=== PATIENT | female | born 1965 | race Caucasian/White ===

== ENCOUNTER 2017-07-13 19:47 | Emergency (ER) | payer OTHER ==
--- NOTE | 2017-07-13 19:53 | EDPHY ---
General Narrative: CHIEF COMPLAINT: Anxiety HISTORY OF PRESENT ILLNESS: Patient presents by EMS and is seen within 5 minutes arrival. She was eating dinner around 7:00 p.m. when she had a sudden onset of palpitations, heart racing, sweating, nausea, spasm of the hands and feet, tingling of the hands and feet, tingling around the mouth. No chest pain but she could feel her heart beating. She has had some recent cough and congestion over the past week , and her partner in friends feel as though she may have had the flu. She has no headache. No neck pain or stiffness. No trauma or injury. She does not use any illicit substance. Does have history of anxiety but no symptoms such as this. No other associated complaints or modifying factors. She arrives by ambulance, and they administered 1 mg of Versed with minimal improvement. REVIEW OF SYSTEMS: Ten systems reviewed and are negative unless otherwise noted in the HPI PCP: Alex physician SPECIALISTS: None PAST MEDICAL HISTORY: Anxiety SOCIAL HISTORY: Nonsmoker. FAMILY HISTORY: Noncontributory EXAMINATION General Appearance: Alert, no distress, anxious and tremulous Head: normocephalic, atraumatic Eyes: Pupils equal and round, no conjunctival pallor or injection ENT, Mouth: Mucous membranes moist. Airway is widely patent Neck: Normal inspection, supple, non-tender Respiratory: Lungs are clear to auscultation. No stridor. No wheezing, rhonchi or crackles Cardiovascular: Tachycardic rate. Regular rhythm. Pulses symmetric in the radial 2+ Back: non-tender, no bony abnormalities Neurological: Carpopedal spasm noted. GCS 15. A&O, nonfocal, strength symmetric Skin: Warm and dry, no rash. No petechiae or purpura Extremities: Nontender, no pedal edema. Tremulous. Psychiatric: Anxious. No SI or HI DIFFERENTIAL DIAGNOSES: Including but not limited to anxiety reaction, thyroid storm, hyperthyroid, influenza, pneumonia, bronchitis MDM: 8:05 p.m. Suspected anxiety reaction. She is tachycardic but in no acute distress. She was exhibiting carpopedal spasm. No chest pain. No hypoxia. IV Ativan, IV fluid ordered. Chest x-ray ordered. EKG ordered. 8:40 p.m. Patient re-evaluated. She is feeling much better after the IV Ativan. I have ordered a 2nd dose. Chest x-ray has been read as negative. CBC and chemistry unremarkable. Troponin TSH pending. She is starting to feel significantly better. 9:15 p.m. Patient re-evaluated. She is feeling much better. No longer having any spasm. She is feeling nearly 100% better. I discussed with attending physician. 9:51 p.m. Patient re-evaluated. She continues to feel well. Suspect this is likely anxiety reaction. EKG unremarkable. Chest x-ray unremarkable. Laboratory studies within normal limits. Vital signs continued to improve. We discussed discharge home with short course of p.r.n. Ativan. We discussed contacting her primary care physician in the morning for outpatient care. We discussed ED precautions for return of symptoms or any chest pain of any kind. She is comfortable with plan and discharged home in stable condition. SUPERVISION: Patient was independently examined, but I discussed the case with my primary supervising physician Dr. Forrest. - Diagnostics Imaging Results: Imaging Impressions Chest X-Ray 07/13/17 20:08 Impression: No acute thoracic abnormality. - Objective Vital Signs: Initial Vital Signs Temperature (C) 98.8 F 07/13/17 20:08 Heart Rate 121 H 07/13/17 20:08 Respiratory Rate 28 H 07/13/17 20:08 Blood Pressure 107/66 07/13/17 20:08 O2 Sat (%) 96 07/13/17 20:08 O2 Delivery Mode Room Air Allergies/Adverse Reactions: No Known Allergies Allergy (Unverified 07/13/17 21:48) Home Medications: Medication Instructions Recorded LORazepam [Ativan] 1 mg PO Q8 PRN #6 tablet 07/13/17 NK [No Known Home Meds] 07/13/17 Laboratory Results: Laboratory Results 07/13/17 19:59 07/13/17 19:59 07/13/17 07/13/17 07/13/17 20:35 19:59 19:59 WBC 5.99 10^3/uL 10^3/uL (3.80-9.50) RBC 5.03 10^6/uL 10^6/uL (4.18-5.33) Hgb 15.4 g/dL g/dL (12.6-16.3) Hct 45.0 % % (38.0-47.0) MCV 89.5 fL fL (81.5-99.8) MCH 30.6 pg pg (27.9-34.1) MCHC 34.2 g/dL g/dL (32.4-36.7) RDW 13.1 % % (11.5-15.2) Plt Count 273 10^3/uL 10^3/uL (150-400) MPV 10.3 fL fL (8.7-11.7) Neut % (Auto) 34.3 % L % (39.3-74.2) Lymph % (Auto) 51.9 % H % (15.0-45.0) [place] % (Auto) 10.2 % % (4.5-13.0) Eos % (Auto) 2.5 % % (0.6-7.6) Baso % (Auto) 0.8 % % (0.3-1.7) Nucleat RBC Rel Count 0.0 % % (0.0-0.2) Absolute Neuts (auto) 2.05 10^3/uL 10^3/uL (1.70-6.50) Absolute Lymphs (auto) 3.11 10^3/uL H 10^3/uL (1.00-3.00) Absolute Monos (auto) 0.61 10^3/uL 10^3/uL (0.30-0.80) Absolute Eos (auto) 0.15 10^3/uL 10^3/uL (0.03-0.40) Absolute Basos (auto) 0.05 10^3/uL 10^3/uL (0.02-0.10) Absolute Nucleated RBC 0.00 10^3/uL 10^3/uL (0-0.01) Immature Gran % 0.3 % % (0.0-1.1) Immature Gran # 0.02 10^3/uL 10^3/uL (0.00-0.10) Sodium 137 mEq/L mEq/L (134-144) Potassium 4.2 mEq/L mEq/L (3.5-5.2) Chloride 100 mEq/L mEq/L (97-110) Carbon Dioxide 23 mEq/l mEq/l (22-31) Anion Gap 14 mEq/L mEq/L (8-16) BUN 14 mg/dL mg/dL (7-23) Creatinine 0.7 mg/dL mg/dL (0.6-1.0) Estimated GFR > 60 Glucose 127 mg/dL H mg/dL (70-100) Calcium 9.4 mg/dL mg/dL (8.5-10.4) Troponin I < 0.012 ng/mL ng/mL (0.000-0.034) Lipase 101 IU/L IU/L (23-300) TSH 0.824 uIU/mL uIU/mL (0.465-4.680) Nasal Influenza A PCR NEGATIVE FOR FLU A (NEGATIVE) Nasal Influenza B PCR NEGATIVE FOR FLU B (NEGATIVE) Medications Given: Discontinued Medications Sodium Chloride (Ns) 1,000 mls @ 0 mls/hr IV ONCE ONE PRN Reason: Wide Open Stop: 07/13/17 20:05 Last Admin: 07/13/17 20:06 Dose: 1,000 mls Lorazepam (Ativan Injection) 1 mg IVP EDNOW ONE Stop: 07/13/17 20:04 Last Admin: 07/13/17 20:06 Dose: 1 mg Lorazepam (Ativan Injection) 1 mg IVP EDNOW ONE Stop: 07/13/17 20:42 Last Admin: 07/13/17 20:44 Dose: 1 mg Departure - Departure Disposition: Home, Routine, Self-Care Clinical Impression: Anxiety reaction, Bronchitis Condition: Good Instructions: Acute Bronchitis (ED), Anxiety (ED), Anxiolysis in Adults (ED) Additional Instructions: 1. Ativan as prescribed as needed 2. Mucinex 1200 mg twice daily as needed, [id number] 3. Anti-inflammatories [id number] as needed 4. Contact her [facility] physician tomorrow morning for definitive care 5. Return to emergency department for return of symptoms, any chest pain or palpitations Referrals: [facility] ,. [Edm Groups for Call Sched] - As per Instructions Prescriptions: LORazepam [Ativan] 1 mg PO Q8 PRN #6 tablet PRN Reason: Anxiety
[2017-07-13] MEDS ORDERED: LORazepam 2 MG/ML INJ ONE (20:00)
[2017-07-13] MEDS ORDERED: LORazepam 2 MG/ML INJ IVP ONE ×2 (20:03→20:41)
[2017-07-13] MEDS ORDERED: NS 1,000 ML IV ONE (20:04)
[2017-07-13 20:13] LABS: % IMMATURE GRANULYOCYTES 0.3 % (0.0-1.1); ABSOLUTE IMMATURE GRANULOCYTES 0.02 10^3/uL (0.00-0.10); ADD DIFF? NO; ADD MORPH? NO; ADD SCAN? NO; ATYPICAL LYMPHOCYTE FLAG 50 (0-99); FRAGMENT RBC FLAG 0 (0-99); HEMOGLOBIN 15.4 g/dL (12.6-16.3); LEFT SHIFT FLG 0 (0-99); LIPEMIA HEMOLYSIS FLAG 90 (0-99); MEAN CELL HEMOGLOBIN 30.6 pg (27.9-34.1); MEAN CELL HEMOGLOBIN CONCENTR. 34.2 g/dL (32.4-36.7); MEAN CELL VOLUME 89.5 fL (81.5-99.8); MEAN PLATELET VOLUME 10.3 fL (8.7-11.7); PLATELET CLUMPS FLAG 0 (0-99); PLATELET COUNT 273 10^3/uL (150-400); RED BLOOD CELL COUNT 5.03 10^6/uL (4.18-5.33); RED CELL DISTRIBUTION WIDTH 13.1 % (11.5-15.2)
--- NOTE | 2017-07-13 20:24 | CPEKG ---
Heart Rate: 91 RR Interval: 659 P-R Interval: 120 QRSD Interval: 82 QT Interval: 368 QTC Interval: 453 P Crow Agency: 55 QRS Crow Agency: 69 T Wave Crow Agency: 6 EKG Severity - OTHERWISE NORMAL ECG - EKG Impression: SINUS RHYTHM EKG Impression: LOW VOLTAGE IN FRONTAL LEADS Electronically Signed By: Nellie Forrest 13-Jul-2017 22:59:40
[2017-07-13 20:27] LABS: ANION GAP 14 mEq/L (8-16); CALCIUM 9.4 mg/dL (8.5-10.4); CARBON DIOXIDE 23 mEq/l (22-31); CHLORIDE 100 mEq/L (97-110); CREATININE 0.7 mg/dL (0.6-1.0); GLOMERULAR FILTRATION RATE > 60; GLUCOSE 127 mg/dL (70-100); POTASSIUM 4.2 mEq/L (3.5-5.2); SODIUM 137 mEq/L (134-144)
[2017-07-13 20:39] LABS: TROPONIN I < 0.012 ng/mL (0.000-0.034)
[2017-07-13 21:51] VITALS: BP 111/58; PULSE 104; RESP 19; TEMP 98.4; O2SAT 90
== END 2017-07-13 22:04 | disposition home or self-care (01) ==
LOC: EDUNIT#
DX: F41.9 Anxiety disorder, unspecified (principal); J40 Bronchitis, not specified as acute or chronic
CPT/HCPCS: 96374; J2060